=== PATIENT | male | born 1945 | race Two or more races ===

== ENCOUNTER 2020-08-21 08:49 | Emergency (ER) | payer MEDICARE ==
[~2020-08-21] VITALS: Ht 170.2 cm; Wt 97.5 kg
[~2020-08-21 08:49] MED LIST: AMLODIPINE BESYL5 MG ORAL; AUGMENTIN 500-1 EACH ORAL; MAGNESIUM CITR296 M1 PO; METRONIDAZOLE500 MG ORAL; SYNTHROID100 MCG ORAL; XANAX0.5 MG ORAL
--- NOTE | 2020-08-21 09:20 | Emergency Room Report ---
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 COVID-19 Screening: Negative COVID-19 COVID-19 Testing Source: 08/13/20 Patient History Past Medical History: see triage record Reviewed Nursing Documentation: PMH: Agreed; PSxH: Agreed Nursing Documentation-PMH Past Medical History: No History, Except For Hx Cardiac Problems: No - hypothyroidsm Hx Hypertension: Yes Hx Diabetes: No Hx Peripheral Neuropathy: Yes Review of Systems All Other Systems: negative except mentioned in HPI Physical Exam Vital Signs Date Time Temp Pulse Resp B/P (MAP) Pulse Ox O2 Delivery O2 Flow Rate FiO2 08/21/20 09:07 99.9 96 20 141/88 (105) 92 Room Air Sp02 EP Interpretation: reviewed, abnormal - Reduced General Appearance: well appearing, no apparent distress, alert Head: normocephalic, atraumatic Eyes: bilateral eye PERRL, bilateral eye EOMI ENT: uvula midline, moist mucus membranes Neck: supple, thyroid normal, supple/symm/no masses Respiratory: lungs clear, no respiratory distress, no retraction, no accessory muscle use Cardiovascular #1: normal peripheral pulses, regular rate, rhythm, no edema, no gallop, no murmur Gastrointestinal: non tender, soft, no guarding, no rebound Musculoskeletal: normal inspection Neurologic: alert, oriented x3 Psychiatric: mood/affect normal Skin: no rash, warm/dry Medical Decision Making Diagnostic Impression: Primary Impression: COVID-19 ER Course 75-year-old male presents with cough, congestion, differential includes Covid, pneumonia, ACS Troponin negative, Covid positive Patient counseled on social isolation strict return precautions discussed, Covid handout was given to the patient Disposition home with return precautions follow-up with PCP Laboratory Tests Test 08/21/20 09:25 White Blood Count 10.7 K/UL (4.8-10.8) Red Blood Count 5.24 M/UL (4.70-6.10) Hemoglobin 16.1 G/DL (14.2-18.0) Hematocrit 44.4 % (42.0-52.0) Mean Corpuscular Volume 85 FL (80-99) Mean Corpuscular Hemoglobin 30.7 PG (27.0-31.0) Mean Corpuscular Hemoglobin Concent 36.3 G/DL (32.0-36.0) H Red Cell Distribution Width 13.5 % (11.6-14.8) Platelet Count 256 K/UL (150-450) Mean Platelet Volume 7.0 FL (6.5-10.1) Neutrophils (%) (Auto) 82.9 % (45.0-75.0) H Lymphocytes (%) (Auto) 11.1 % (20.0-45.0) L Monocytes (%) (Auto) 5.0 % (1.0-10.0) Eosinophils (%) (Auto) 0.0 % (0.0-3.0) Basophils (%) (Auto) 1.0 % (0.0-2.0) Sodium Level 130 MMOL/L (136-145) L Potassium Level 3.8 MMOL/L (3.5-5.1) Chloride Level 93 MMOL/L (98-107) L Carbon Dioxide Level 31 MMOL/L (21-32) Anion Gap 6 mmol/L (5-15) Blood Urea Nitrogen 16 mg/dL (7-18) Creatinine 1.1 MG/DL (0.55-1.30) Estimated Glomerular Filtration Rate > 60 mL/min (>60) Glucose Level 83 MG/DL (74-106) Calcium Level 9.0 MG/DL (8.5-10.1) Total Bilirubin 0.5 MG/DL (0.2-1.0) Aspartate Amino Transferase (AST) 13 U/L (15-37) L Alanine Aminotransferase (ALT) 21 U/L (12-78) Alkaline Phosphatase 79 U/L (46-116) Troponin I 0.015 ng/mL (0.000-0.056) Pro-B-Type Natriuretic Peptide 88 pg/mL (0-125) Total Protein 7.7 G/DL (6.4-8.2) Albumin 3.8 G/DL (3.4-5.0) Globulin 3.9 g/dL Albumin/Globulin Ratio 1.0 (1.0-2.7) Microbiology Date/Time Source Procedure Growth Status 08/21/20 09:25 Nasopharynx SARS-CoV-2 RdRp Gene Assay - Final Complete EKG Diagnostic Results Troponin ordered: Yes When was troponin ordered?: Aug 21, 2020 EKG Time: 09:20 EP Interpretation: Sinus tachycardia, rate 108, QTc 393, no acute ST eleva tions, left axis dev Rhythm Strip Diag. Results Rhythm Strip Time: 10:36 EP Interpretation: yes Rate: 95 Rhythm: NSR, no PVC's, no ectopy Chest X-Ray Diagnostic Results Chest X-Ray Diagnostic Results : Chest X-Ray Ordered: Yes # of Views/Limited/Complete: 1 View Indication: Chest Pain EP Interpretation: Yes Interpretation: no consolidation, no effusion, no pneumothorax, no acute cardiopulmonary disease Impression: No acute disease Electronically Signed by: Stevenson Padilla MD Last Vital Signs Date Time Temp Pulse Resp B/P (MAP) Pulse Ox O2 Delivery O2 Flow Rate FiO2 08/21/20 09:07 99.9 96 20 141/88 (105) 92 Room Air Disposition: HOME, SELF-CARE Condition: Stable Referrals: NOT CHOSEN IPA/,REFERRING [facility]P) [facility] Patient Instructions: Upper Respiratory Infection, Adult, [id number] Additional Instructions: The patient was provided with discharge instructions, notified to follow-up with a primary care doctor and or specialist in the next 24-48 hours, and to return to the ED if they have worsening of their symptoms. Please note that this report is being documented using [employer] website technology. This can lead to erroneous entry secondary to incorrect interpretation by the dictating instrument. PLEASE READ THE COVID 19 HANDOUT THAT WAS GIVEN TO YOU, PLEASE SOCIALLY ISOLATE FOR 14 DAYS. Stevenson Padilla MD Aug 21, 2020 09:20
[2020-08-21] MEDS ORDERED: Acetaminophen 500mg (ES) tab ORAL ONE (09:30)
[2020-08-21 09:32] VITALS: BP 141/88
[2020-08-21 09:34] LABS: HEMATOCRIT 44.4 % (42.0-52.0); HEMOGLOBIN 16.1 G/DL (14.2-18.0); LYMPHOCYTES % (AUTO) 11.1 % (20.0-45.0); MEAN CORPUSCULAR VOLUME 85 FL (80-99); NEUTROPHILS % (AUTO) 82.9 % (45.0-75.0); PLATELET COUNT 256 K/UL (150-450); RED BLOOD COUNT 5.24 M/UL (4.70-6.10); RED CELL DISTRIBUTION WIDTH 13.5 % (11.6-14.8); WHITE BLOOD COUNT 10.7 K/UL (4.8-10.8)
--- NOTE | 2020-08-21 09:35 | NUR ---
ED Nurse Note: Patient walked in from home due to elevated BP and SOB since today. 92 % sat. Denies CP. Patient presented calm, AAO x4, VSS at this time.
--- NOTE | 2020-08-21 09:38 | NUR ---
ED Nurse Note: IV line was established on right AC 20ga, blood collected sent to lab
[2020-08-21 10:10] LABS: ANION GAP 6 mmol/L (5-15); BLOOD UREA NITROGEN 16 mg/dL (7-18); CARBON DIOXIDE 31 MMOL/L (21-32); CHLORIDE 93 MMOL/L (98-107); CREATININE 1.1 MG/DL (0.55-1.30); POTASSIUM 3.8 MMOL/L (3.5-5.1); SODIUM 130 MMOL/L (136-145)
[2020-08-21 10:23] LABS: ALANINE AMINOTRANSFERASE 21 U/L (12-78); ALBUMIN 3.8 G/DL (3.4-5.0); ALKALINE PHOSPHATASE 79 U/L (46-116); ASPARTATE AMINO TRANSFERASE 13 U/L (15-37); BILIRUBIN,TOTAL 0.5 MG/DL (0.2-1.0)
--- NOTE | 2020-08-21 10:26 | Diagnostic Imaging Report ---
Indication: Reason For Exam: SOB Technique: One view of the chest Comparison: none Findings: No acute infiltrates, effusions, or congestion. Tortuous calcified aorta. Upper limits normal heart size with a left ventricular hypertrophy configuration. Upper mediastinum unremarkable. Impression: No acute process.
[2020-08-21 10:57] VITALS: BP 141/88
--- NOTE | 2020-08-21 10:57 | NUR ---
ER DISCHARGE NOTE: Patient is cleared to be discharged per ERMD, pt is aox4, on room air, with stable vital signs. pt was given dc and prescription instructions, pt was able to verbalize understanding, pt id band and iv site removed without complications. pt is able to ambulate with steady gait. pt took all belongings.
--- NOTE | 2020-08-21 10:57 | NUR ---
Note scot in EDM - 08/21/20 at 1111 by [email or web address] ED Nurse Note: Patient left AMA. Stated fell much better, can normaly breath, do not sees any reason to stay. Patient left ER with steady gait, AAO x4, all VSS at this time, took all belongings.
== END 2020-08-21 10:57 | disposition home or self-care (01) ==
LOC: EMR 09:10
DX: U07.1 COVID-19 (principal); I10 Essential (primary) hypertension
CPT/HCPCS: 36415; 71045; 80053; 83880; 84484; 85025; 93005; 96360; 99284; J7030; U0002